=== PATIENT | female | born 1980 | race Two or more races ===

== ENCOUNTER 2024-08-15 17:49 | Emergency (ER) | payer BC, OTHER ==
[~2024-08-15] VITALS: Ht 154.9 cm; Wt 67.5 kg
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
[2024-08-15] MEDS: ALBUTEROL SULF 2.5 MG/0.5ML(0.5%) NEB SOLN NEB ONE (18:49)
[2024-08-15] MEDS: IPRATROPIUM BROM 0.5 MG/2.5ML INH SOL NEB ONE (18:49)
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
[2024-08-15] MEDS ORDERED: PRED20TA2 PO (19:39)
[2024-08-15] MEDS ORDERED: ALBUAER3 IN (19:39)
[2024-08-16 00:51] VITALS: BP 116/71; PULSE 70; RESP 17; TEMP 98.7; O2SAT 98
[2024-08-16] MEDS: KETOROLAC TROMETH 30 MG/ML 1ML VIAL IM ONE (01:05)
== END 2024-08-16 01:16 | disposition home or self-care (01) ==
LOC: ER 17:49
DX: J45.901 Unspecified asthma with (acute) exacerbation (principal); I10 Essential (primary) hypertension; V89.2XXA Person injured in unspecified motor-vehicle accident, traffic, initial encounter; Y93.I9 Activity, other involving external motion; Y92.488 Other paved roadways as the place of occurrence of the external cause; Y99.8 Other external cause status
CPT/HCPCS: 71046; 94640; 96372; 99283; J1885